=== PATIENT | male | born 1970 | race Caucasian/White ===

== ENCOUNTER → 2019-03-07 | Outpatient (CLI) | payer OTHER ==
[~2019-03-07] MED LIST: ALEVE COLD & S1 EACH; NORCO 7.5-3251 EACH PO
== END ==
LOC: RAD 15:59
DX: M54.16 Radiculopathy, lumbar region (principal); R10.2 Pelvic and perineal pain

== ENCOUNTER → 2019-05-12 | Outpatient (CLI) | payer OTHER | LOC: RAD 08:28 | DX: M54.16 Radiculopathy, lumbar region (principal); M54.42 Lumbago with sciatica, left side; R32 Unspecified urinary incontinence ==

== ENCOUNTER 2020-11-13 20:27 | Emergency (ER) | payer BC, OTHER ==
[~2020-11-13] VITALS: Ht 188 cm; Wt 97.5 kg
[2020-11-13 20:48] LABS: BASOPHILS 0.9 % (0.0-2.0); EOSINOPHILS 2.2 % (0.0-3.0); HEMOGLOBIN 13.6 gm/dL (14.0-18.0); LYMPHOCYTES 37.2 % (24.0-44.0); MCH 29.8 pg (26.0-34.0); MCHC 33.9 g/dL (28.0-37.0); MCV 87.9 fL (80.0-100.0); MONOCYTES 7.6 % (1.0-8.0); PLATELET COUNT 282 thou/uL (150-400); POLYS 52.1 % (36.0-66.0); RBC 4.56 mil/uL (4.50-6.00); RDW 13.1 % (10.5-14.5); WBC 9.5 thou/uL (4.0-11.0)
[2020-11-13 20:51] LABS: ANION GAP 9 mmol/L (7-16); BUN 25 mg/dL (7-18); CALCIUM 8.8 mg/dL (8.5-10.1); CHLORIDE 102 mmol/L (98-107); CO2 29 mmol/L (21-32); CREATININE 1.2 mg/dL (0.7-1.3); GLUCOSE 133 mg/dL (74-106); POTASSIUM 3.2 mmol/L (3.5-5.1); SODIUM 140 mmol/L (136-145)
[2020-11-13 20:57] LABS: ALBUMIN 3.8 g/dL (3.4-5.0); DIRECT BILIRUBIN < 0.1 mg/dL (<0.1-0.2); SGOT 15 U/L (15-37); SGPT 31 U/L (30-65); TOTAL BILIRUBIN 0.3 mg/dL (0.2-1.0); TOTAL PROTEIN 6.8 g/dL (6.4-8.2)
[2020-11-13 21:03] LABS: INR < 0.9
[2020-11-13 21:06] VITALS: BP 156/81
--- NOTE | 2020-11-14 07:09 | EKG ---
[place] [address] [facility] [place] [address] ELECTROCARDIOGRAM REPORT Name: VIOLETA BORGES [id number] Admission: 11/13/20 Attend Phys: Discharge: 11/13/20 Date of : 66 Report #: [id number] [facility] ED Test Date: 2020-11-13 Test Time: 20:39:35 Pat Name: VIOLETA BORGES Department: Room: Gender: M [employer]: kerry : 1970 Requested By: Alessandro Whitt Order Number: [id number] MD: Rufino Chris Measurements Intervals Jackson Rate: 81 P: 72 AL: 157 QRS: 38 QRSD: 87 T: 35 QT: 364 QTc: 423 Interpretive Statements Sinus rhythm Probable left atrial enlargement RSR' in V1 or V2, probably normal variant Baseline wander in lead(s) II,III,aVF,V4 No previous ECG available for comparison Electronically Signed On 11-14-2020 7:08:54 [employer] by Rufino Chris [email or web address] <ELECTRONICALLY SIGNED> By: Rufino Chris MD, [facility] 11/14/20707 38 38 Rufino Chris MD, FACC /EPI
== END 2020-11-13 21:05 | disposition short-term general hospital (02) ==
LOC: ER 20:27
PROVIDERS: Emergency Medicine
DX: M54.2 Cervicalgia (principal); R20.2 Paresthesia of skin; R53.1 Weakness; Z79.899 Other long term (current) drug therapy